=== PATIENT | female | born 1960 | race Caucasian/White ===

== ENCOUNTER 2019-04-11 05:40 | Outpatient (CLI) | payer BC ==
[~2019-04-11] VITALS: Ht 171.4 cm; Wt 82.6 kg
== END 2019-04-11 13:25 | disposition home or self-care (01) ==
LOC: PREOP 05:40
PROVIDERS: ATTEND Surgery
DX: Z01.818 Encounter for other preprocedural examination (principal)

== ENCOUNTER 2019-04-18 07:44 | Day surgery (SDC) | payer BC, OTHER ==
[~2019-04-18] VITALS: Ht 171.4 cm; Wt 82.6 kg
[~2019-04-18 07:44] MED LIST: LACTATED RINGERS 1,000 ML IV ONE
[2019-04-18] MEDS ORDERED: LACTATED RINGERS 1,000 ML IV STA (07:56)
[2019-04-18] MEDS ORDERED: proPOfol 200 MG/20 ML (DIPRIVAN) VIAL IV ONE ×2 (07:58→09:05)
[2019-04-18] MEDS ORDERED: fentaNYL INJECTION 100 MCG/2 ML AMP ONE (07:59)
[2019-04-18] MEDS ORDERED: MIDAZOLAM 2 MG/2 ML (VERSED) VIAL ONE (07:59)
[2019-04-18] MEDS ORDERED: LIDOCAINE PF 2% 5 ML (XYLOCAINE) VIAL ONE (07:59)
[2019-04-18 08:00] VITALS: BP 153/89
--- NOTE | 2019-04-18 08:19 | Progress Note-Pre Operative ---
Pre-Operative Progress Note H&P Reviewed The H&P was reviewed, patient examined and no changes noted. Time Seen by Provider: 08:14 Date H&P Reviewed: Apr 18, 2019 Time H&P Reviewed: 08:11 Pre-Operative Diagnosis: Screening colonoscopy CONOR LAINEZ DO Apr 18, 2019 08:19
--- OUTSIDE RECORDS SUMMARY | 2019-04-18 09:36 | XMS REPORT ---
Author Author Migration, Doctor Organization [facility] Address Unknown Phone Unavailable Care Team Providers Care Free Lance Model Name Role Phone Migration, Doctor Unavailable Unavailable PROBLEMS Unknown Problems ALLERGIES No Information ENCOUNTERS Encounter Location Date Diagnosis [facility] [id number] [place] [id number] Jan, [facility] [address] [address] Jul, Mid-back pain, acute M54.9 and Lower back pain M54.5 [facility] [id number] [place] [address] May, Elevated blood pressure reading R03.0 ; Actinic keratosis L57.0 and Skin tag L91.8 [facility] [id number] [place] [address] Jun, [facility] [address] [address] Jun, Encounter for wellness examination Z00.00 and Routine gynecological examination Z01.419 [facility] [id number] [place] [id number] Apr, Dental examination V72.2 [facility] [id number] [place] [address] Mar, [facility] [id number] [place] [address] Mar, Hyperlipemia 272.4 [facility] [address] [address] Mar, Chest pain of uncertain etiology 786.59 [facility] [id number] [place] [id number] February, Dental examination V72.2 [facility] [address] [facility] [id number], [place] [address] Jan, [facility] [address] [address] Jan, [facility] [address] [id number] [address] Apr, [facility] [address] [address] Apr, [facility] [address] [facility] [id number], [place] [address] Apr, [facility] [address] [id number] [address] Apr, IMMUNIZATIONS No Known Immunizations SOCIAL HISTORY Never Assessed REASON FOR VISIT EMR-[facility] PLAN OF CARE VITAL SIGNS MEDICATIONS Medication Instructions Dosage Frequency Start Date End Date Duration Status Nystatin-Triamcinolone 100,000-0.1 unit/g-% 1 wale by Topical route 2 times per day for 14 day(s) PRN rash in skin folds Apr, Active Lamisil 250 mg 1 tablet by Oral route 1 time per day Apr, Active RESULTS No Results PROCEDURES No Known procedures INSTRUCTIONS MEDICATIONS ADMINISTERED No Known Medications MEDICAL (GENERAL) HISTORY Type Description Date Medical History liver problem as a child Surgical History Appendectomy Surgical History Tonsillectomy Surgical History Right knee cap repair Hospitalization History childbirth
--- OUTSIDE RECORDS SUMMARY | 2019-04-18 09:36 | XMS REPORT ---
Author Author SUDARSHAN CONTE Organization [facility] Address [address] [place] [address] Care Team Providers Care Heavy Line Technician Name Role Phone SUDARSHAN CONTE Unavailable PROBLEMS Unknown Problems ALLERGIES Substance Reaction Event Type Date Status gluten sensitive Unknown Non Drug Allergy Jul, Active ENCOUNTERS Encounter Location Date Diagnosis [facility] [address] [address] Jul, Mid-back pain, acute M54.9 and Lower back pain M54.5 [facility] [address] [address] May, Elevated blood pressure reading R03.0 ; Actinic keratosis L57.0 and Skin tag L91.8 [facility] [id number] [place] [address] Jun, [facility] [address] [place] [address] Jun, Encounter for wellness examination Z00.00 and Routine gynecological examination Z01.419 [facility] [id number] [place] [id number] Apr, Dental examination V72.2 [facility] [id number] [place] [address] Mar, [facility] [address] [address] 08 Mar, 2015 Hyperlipemia 272.4 [facility] [id number] [place] [address] 05 Mar, 2015 Chest pain of uncertain etiology 786.59 [facility] [address] [place] [phone] February, Dental examination V72.2 [facility] [address] [facility] [id number] [address] Jan, [facility] [address] [id number] [address] Jan, [facility] [address] [facility] [id number], [place] [address] Apr, [facility] [address] [facility] [id number], [place] [address] Apr, [facility] [address] [facility] [id number], [place] [address] Apr, [facility] [address] [facility] [id number] [address] Apr, IMMUNIZATIONS No Known Immunizations SOCIAL HISTORY Never Assessed REASON FOR VISIT Back pain-upper back pain between the shoulder blades that is causing her to wak e up at night. She is concerned that it may be something with her liver.--Carlos ruelas MA PLAN OF CARE Activity Details Follow Up if not improving or regular follow up with pcp Reason: Pending Test Xray : Spine, Thoracic 2 views (IN HOUSE) Pending Test Xray : Spine, Lumbar 2-3 views (IN HOUSE) VITAL SIGNS Height 68 in 2018-08-09 Weight 173.6 lbs 2018-08-09 Temperature 97.8 degrees Fahrenheit 2018-08-09 Heart Rate 72 bpm 2018-08-09 Respiratory Rate 18 2018-08-09 BMI 26.39 kg/m2 2018-08-09 Blood pressure systolic 140 mmHg 2018-08-09 Blood pressure diastolic 74 mmHg 2018-08-09 MEDICATIONS Medication Instructions Dosage Frequency Start Date End Date Duration Status Multivitamin Adult - Active Ibuprofen 200 MG Orally every 6 hrs 2 tablet as needed 6h Active RESULTS No Results PROCEDURES Procedure Date Ordered Result Body Site X-RAY EXAM OF THORACIC SPINE Aug 09, 2018 X-RAY EXAM OF LOWER SPINE Aug 09, 2018 INSTRUCTIONS MEDICATIONS ADMINISTERED No Known Medications MEDICAL (GENERAL) HISTORY Type Description Date Medical History liver problem as a child Surgical History Appendectomy Surgical History Tonsillectomy Surgical History Right knee cap repair Hospitalization History childbirth
--- OUTSIDE RECORDS SUMMARY | 2019-04-18 09:36 | XMS REPORT ---
Author Author KING MABEL [facility] Address [address] [place] [address] Care Team Providers Care Assessment Specialist Name Role Phone MABEL KATZ Unavailable PROBLEMS Type Condition ICD9-CM Code [id number] Code Onset Dates Condition Status SNOMED Code Problem Routine gynecological examination Z01.419 Active 028767453 Problem Encounter for wellness examination Z00.00 Active 348641734 Problem Chest pain of uncertain etiology 786.59 Active 81921300 Problem Dermatophytosis of the body 110.5 Active 939477260 ALLERGIES Substance Reaction Event Type Date Status gluten sensitive Unknown Non Drug Allergy May, Active ENCOUNTERS Encounter Location Date Diagnosis [facility] [address] [address] 03 May, 2018 Elevated blood pressure reading R03.0 ; Actinic keratosis L57.0 and Skin tag L91.8 [facility] [address] [address] 13 Jun, 2016 [facility] [address] [address] 06 Jun, 2016 Encounter for wellness examination Z00.00 and Routine gynecological examination Z01.419 [facility] [address] [id number] Apr, Dental examination V72.2 [facility] [address] [address] Mar, [facility] [address] [address] Mar, Hyperlipemia 272.4 [facility] [address] [address] 05 Mar, 2015 Chest pain of uncertain etiology 786.59 [facility] [address] [id number] [id number] February, Dental examination V72.2 [facility] [address] [id number] [address] Jan, [facility] [address] [id number] [address] Jan, [facility] [address] [id number] [address] Apr, [facility] [address] [facility] [id number] [address] Apr, [facility] [address] [id number] [address] Apr, [facility] [address] [id number] [address] Apr, IMMUNIZATIONS No Known Immunizations SOCIAL HISTORY Never Assessed REASON FOR VISIT Transition of Care-Yaerli, has a few skin lesions on back that would like ev aluated. PLAN OF CARE Activity Details Follow Up 3 months or as indicated by lab Reason: VITAL SIGNS Height 68 in 2018-05-14 Weight 176.3 lbs 2018-05-14 Temperature 98.2 degrees Fahrenheit 2018-05-14 Heart Rate 64 bpm 2018-05-14 Respiratory Rate 20 2018-05-14 BMI 26.80 kg/m2 2018-05-14 Blood pressure systolic 164 mmHg 2018-05-14 Blood pressure diastolic 102 mmHg 2018-05-14 MEDICATIONS Medication Instructions Dosage Frequency Start Date End Date Duration Status Ibuprofen 200 MG Orally every 6 hrs 2 tablet as needed 6h Active Multivitamin Adult - Active RESULTS No Results PROCEDURES Procedure Date Ordered Result Body Site COMPLETE CBC W/AUTO DIFF WBC May 14, 2018 COMPREHEN METABOLIC PANEL May 14, 2018 LIPID PANEL May 14, 2018 INSTRUCTIONS MEDICATIONS ADMINISTERED No Known Medications MEDICAL (GENERAL) HISTORY Type Description Date Surgical History Appendectomy Surgical History Tonsillectomy Surgical History Right knee cap repair Hospitalization History childbirth
--- OUTSIDE RECORDS SUMMARY | 2019-04-18 09:36 | XMS REPORT ---
Author Author Migration, Doctor Organization [facility] Address Unknown Phone Unavailable Care Team Providers Care Sap Solution Manager Consultant Name Role Phone Migration, Doctor Unavailable Unavailable PROBLEMS No Known Problems ALLERGIES No Information ENCOUNTERS Encounter Location Date Diagnosis [facility] [id number] [place] [address] Mar, [facility] [id number] [place] [id number] Jan, Periodontitis K05.30 [facility] [address] [id number] Jan, Caries K02.9 ; Dental examination Z01.20 and Periodontitis K05.30 [facility] [id number] [place] [address] Jan, Suprapubic pain R10.2 [facility] [id number] [place] [address] Jul, Mid-back pain, acute M54.9 and Lower back pain M54.5 [facility] [id number] [place] [address] May, Elevated blood pressure reading R03.0 ; Actinic keratosis L57.0 and Skin tag L91.8 [facility] [id number] [place] [address] Jun, [facility] [address] [address] 06 Jun, 2016 Encounter for wellness examination Z00.00 and Routine gynecological examination Z01.419 [facility] [place] [id number] [place] [id number] Apr, Dental examination V72.2 [facility] [address] [place] [address] Mar, [facility] [address] [place] [address] Mar, Hyperlipemia 272.4 [facility] [id number] [place] [address] Mar, Chest pain of uncertain etiology 786.59 [facility] [id number] [place] [id number] February, Dental examination V72.2 [facility] [id number] [place] [address] Jan, [facility] [id number] [place] [address] Jan, [facility] [id number] [place] [address] Apr, [facility] [id number] [place] [address] Apr, [facility] [address] [place] [address] Apr, [facility] [id number] [place] [address] Apr, IMMUNIZATIONS No Known Immunizations SOCIAL HISTORY Never Assessed REASON FOR VISIT EMR-[facility] PLAN OF CARE VITAL SIGNS MEDICATIONS Unknown Medications RESULTS No Results PROCEDURES No Known procedures INSTRUCTIONS MEDICATIONS ADMINISTERED No Known Medications MEDICAL (GENERAL) HISTORY Type Description Date Medical History liver problem as a child Surgical History Appendectomy Surgical History Tonsillectomy Surgical History Right knee cap repair Hospitalization History childbirth
--- NOTE | 2019-04-18 09:37 | Endoscopy Discharge Instruct ---
Endo Procedure/Findings Findings 1.: Polyp 2.: Internal Hemorrhoids Discharge Instructions - Activity: You might feel a little sleepy until tomorrow. This is due to the medicine you received to relax you. Until tomorrow, you should: NOT drive a car, operate machinery or power tools. NOT drink any alcoholic beverages. NOT make any important decisions or sign importortant papers. Do not return to work until tomorrow, unless otherwise instructed. Resume previous activities tomorrow. Diet: Start by taking liquids. If you tolerate liquids, advance to solid food. make an appointment for one week Instructions: 1.: Colonscopy in 3 years Notify Physician - If you experience excessive bleeding, unusual abdominal pain, fever, or chest pain, contact your doctor immediately. Follow-Up: - I have received and understand the above instructions and will call my doctor if I have any further questions. Patient Signature Date Nurse Signature Other (Relationship) CONOR LAINEZ DO Apr 18, 2019 09:37
--- NOTE | 2019-04-18 09:37 | Progress Note-Post Operative ---
Post-Operative Progess Note Surgeon (s)/Ell Tutor (s) Surgeon CONOR LAINEZ DO Ell Tutor: none Pre-Operative Diagnosis Screening colonoscopy Post-Operative Diagnosis Rectal polyp Internal Hemorrhoids External skin tag Procedure & Operative Findings Date of Procedure 04/18/19 Procedure Performed/Findings Colon with snare Anesthesia Type IV sedation by AVIONICS INSTALLER Estimated Blood Loss Estimated blood loss (mL): scant Specimens/Packing Specimens Removed rectal polyp CONOR LAINEZ DO Apr 18, 2019 09:37
--- OUTSIDE RECORDS SUMMARY | 2019-04-18 09:37 | XMS REPORT | Continuity of Care Document ---
Author Organization Unknown Address Unknown Allergies There is no data. Medications There is no data. Problems Date Dx Coded Attending Type Code Diagnosis Diagnosed By 05/24/2008 SUDARSHAN CONTE APRN V72.31 ROUTINE GYNECOLOGICAL EXAMINATION 05/24/2008 LILIAN HURTADO DDS V72.31 ROUTINE GYNECOLOGICAL EXAMINATION 01/31/2009 SUDARSHAN CONTE APRN 465.9 ACUTE UPPER RESPIRATORY INFECTIONS OF UNSPECIFIED SITE 01/31/2009 LILIAN HURTADO DDS 465.9 ACUTE UPPER RESPIRATORY INFECTIONS OF UNSPECIFIED SITE 03/15/2009 SUDARSHAN CONTE APRN 729.5 PAIN IN THE LEG (BELOW THE KNEE) 03/15/2009 LILIAN HURTADO DDS 729.5 PAIN IN THE LEG (BELOW THE KNEE) 04/19/2014 SUDARSHAN CONTE APRN 110.5 DERMATOPHYTOSIS OF THE BODY 04/19/2014 LILIAN HURTADO DDS 110.5 DERMATOPHYTOSIS OF THE BODY Procedures There is no data. Results Test Result Range CBC - 05/14/18 13:16 WHITE BLOOD CELL COUNT 4.8 Thousand/uL 3.8-10.8 RED BLOOD CELL COUNT 4.46 Million/uL 3.80-5.10 HEMOGLOBIN 13.1 g/dL 11.7-15.5 HEMATOCRIT 39.3 % 35.0-45.0 MCV 88.1 fL 80.0-100.0 MCH 29.4 pg 27.0-33.0 MCHC 33.3 g/dL 32.0-36.0 RDW 12.8 % 11.0-15.0 PLATELET COUNT 242 Thousand/uL 140-400 MPV 10.3 fL 7.5-12.5 ABSOLUTE NEUTROPHILS 2491 cells/uL 1775-4162 ABSOLUTE LYMPHOCYTES 1786 cells/uL 850-3900 ABSOLUTE MONOCYTES 370 cells/uL 200-950 ABSOLUTE EOSINOPHILS 91 cells/uL 15-500 ABSOLUTE BASOPHILS 62 cells/uL 0-200 NEUTROPHILS 51.9 % NRG LYMPHOCYTES 37.2 % NRG MONOCYTES 7.7 % NRG EOSINOPHILS 1.9 % NRG BASOPHILS 1.3 % NRG Encounters ACCT No. Visit Date/Time Discharge Status Pt. Type Provider Facility Loc./Unit Complaint [id number] 03/15/2019 16:20:00 03/15/2019 23:59:59 CLS Outpatient MABEL KATZ [facility] [id number] 05/14/2018 12:20:00 Document Registration [id number] 11/29/2014 00:00:00 11/29/2014 23:59:59 CLS Outpatient LILIAN HURTADO DDS [id number] 04/19/2014 13:31:00 04/19/2014 23:59:59 CLS Outpatient SUDARSHAN CONTE APRN
--- OUTSIDE RECORDS SUMMARY | 2019-04-18 09:37 | XMS REPORT ---
Author Author TEE GOMES [facility] Address [address] [place] [address] Care Team Providers Care Retail Management Keyholder Name Role Phone TEE GOMES Unavailable PROBLEMS Type Condition ICD9-CM Code [id number] Code Onset Dates Condition Status SNOMED Code Problem Encounter for wellness examination Z00.00 Active 345502999 Problem Routine gynecological examination Z01.419 Active 701710186 Problem Chest pain of uncertain etiology 786.59 Active 05196964 Problem Dermatophytosis of the body 110.5 Active 029500398 ALLERGIES Unknown Allergies SOCIAL HISTORY No smoking Hx information available PLAN OF CARE VITAL SIGNS MEDICATIONS Unknown Medications RESULTS No Results PROCEDURES No Known procedures IMMUNIZATIONS No Known Immunizations
--- OUTSIDE RECORDS SUMMARY | 2019-04-18 09:37 | XMS REPORT ---
Author Author TEE GOMES Organization [facility] Address [address] [place] [address] Care Team Providers Care Axle Polisher Name Role Phone CHERRIE GOMESE Unavailable PROBLEMS Type Condition ICD9-CM Code ZRM99-HR Code Onset Dates Condition Status SNOMED Code Problem Encounter for wellness examination Z00.00 Active 576980067 Problem Routine gynecological examination Z01.419 Active 709651897 Assessment Encounter for wellness examination Z00.00 06 Jun, 2016 Active 454575770 Problem Chest pain of uncertain etiology 786.59 Active 05509085 Problem Dermatophytosis of the body 110.5 Active 320211387 ALLERGIES Substance Reaction Event Type Date Status gluten sensitive Unknown Non Drug Allergy Jun, Active SOCIAL HISTORY No smoking Hx information available PLAN OF CARE VITAL SIGNS Height 68 in 2016-06-17 Weight 181.3 lbs 2016-06-17 Heart Rate 76 bpm 2016-06-17 Respiratory Rate 18 2016-06-17 BMI 27.56 kg/m2 2016-06-17 Blood pressure systolic 150 mmHg 2016-06-17 Blood pressure diastolic 92 mmHg 2016-06-17 MEDICATIONS Unknown Medications RESULTS Name Result Date Reference Range PAP TEST, HPV IF ASCUS 2016-06-17 DIAGNOSIS: Specimen adequacy: Clinician provided ICD10: Performed by: . . Note: . CBC 2016-06-17 WBC 4.7 3.4-10.8 RBC 4.45 3.77-5.28 Hemoglobin 12.7 11.1-15.9 Hematocrit 39.8 34.0-46.6 MCV 89 79-97 MCH 28.5 26.6-33.0 MCHC 31.9 31.5-35.7 RDW 13.8 12.3-15.4 Platelets 254 150-379 Neutrophils 45 Lymphs 44 Monocytes 8 Eos 2 Basos 1 Neutrophils (Absolute) 2.1 1.4-7.0 Lymphs (Absolute) 2.1 0.7-3.1 Monocytes(Absolute) 0.4 0.1-0.9 Eos (Absolute) 0.1 0.0-0.4 Baso (Absolute) 0.0 0.0-0.2 Immature Granulocytes 0 Immature Grans (Abs) 0.0 0.0-0.1 CULTURE, GENITAL 2016-06-17 Genital Culture, Routine Final report Result 1 Result 2 LIPID PANEL 2016-06-17 Cholesterol, Total 221 100-199 Triglycerides 73 0-149 HDL Cholesterol 84 >39 VLDL Cholesterol Pete 15 5-40 LDL Cholesterol Calc 122 0-99 Comment: CMP 2016-06-17 Glucose, Serum 90 65-99 BUN 14 6-24 Creatinine, Serum 0.89 0.57-1.00 eGFR If NonAfricn Am 74 >59 eGFR If Africn Am 86 >59 BUN/Creatinine Ratio 16 9-23 Sodium, Serum 144 134-144 Potassium, Serum 4.2 3.5-5.2 Chloride, Serum 102 97-108 Carbon Dioxide, Total 25 18-29 Calcium, Serum 9.4 8.7-10.2 Protein, Total, Serum 6.5 6.0-8.5 Albumin, Serum 4.3 3.5-5.5 Globulin, Total 2.2 1.5-4.5 A/G Ratio 2.0 1.1-2.5 Bilirubin, Total 0.5 0.0-1.2 Alkaline Phosphatase, S 47 39-117 AST (SGOT) 17 0-40 ALT (SGPT) 14 0-32 PDF Report 2016-06-17 PDF Report1 LCLS PROCEDURES Procedure Date Ordered Related Diagnosis Body Site COMPLETE CBC W/AUTO DIFF WBC Jun 17, 2016 LIPID PANEL Jun 17, 2016 Preventive Care Est Pt. Age 40-64 Jun 17, 2016 CULTURE, BACTERIA, OTHER Jun 17, 2016 COMPREHEN METABOLIC PANEL Jun 17, 2016 VENIPUNCT, ROUTINE* Jun 17, 2016 SPECIMEN HANDLING Jun 17, 2016 IMMUNIZATIONS No Known Immunizations
--- OUTSIDE RECORDS SUMMARY | 2019-04-18 09:37 | XMS REPORT ---
Author Author LILIAN HURTADO [facility] eClinicalWorks Address Unknown Phone Unavailable Care Team Providers Care Bottom Painter Name Role Phone LILIAN HURTADO CP Unavailable Allergies No Known Allergies Problems Problem Type Condition ICD-9 Code Onset Dates Condition Status Assessment Dental examination V72.2 Active Problem Dermatophytosis of the body 110.5 Active Medications No Known Medications Procedures Procedure Coding System Code Date Billing Notes on claim CPT-4 EC109 March 07, 2015 Results No Known Results Summary Purpose eClinicalWorks Submission
[2019-04-18 09:50] VITALS: BP 123/70
[2019-04-18 10:15] VITALS: BP 129/88
--- NOTE | 2019-04-18 10:33 | Anesthesia-General Post-Op ---
MAC Patient Condition Mental Status/LOC: Same as Preop Cardiovascular: Satisfactory Nausea/Vomiting: Absent Respiratory: Satisfactory Pain: Controlled Complications: Absent Post Op Complications Complications None Follow Up Care/Instructions Patient Instructions None needed. Anesthesiology Discharge Order Discharge Order Patient is doing well, no complaints, stable vital signs, no apparent adverse anesthesia problems. No complications reported per nursing. ORTIZ ARCE CRNA Apr 18, 2019 10:33
[2019-04-18 10:56] VITALS: BP 129/88
--- NOTE | 2019-04-18 14:00 | OPERATIVE REPORT ---
DATE OF SERVICE: 04/18/2019 PREOPERATIVE DIAGNOSIS: Screening colonoscopy. POSTOPERATIVE DIAGNOSES: 1. Rectal polyp. 2. Internal hemorrhoids. 3. External hemorrhoidal skin tag. PROCEDURE: Colonoscopy with snare polypectomy. SURGEON: Davion Lopez DO HEALTHCARE MANAGER: None. ANESTHESIA: IV sedation by RESEARCH ELECTRICIAN. SPECIMEN: Rectal polyp. BLOOD LOSS: Scant. FLUIDS: Per anesthesia. POSTOPERATIVE CONDITION: Stable. INDICATION FOR PROCEDURE: The patient is a 58-year-old female who needed a screening colonoscopy. FINDINGS: The patient had a rectal polyp possibly bigger than a cm and she had some internal hemorrhoids as well as couple external hemorrhoidal skin tags. PROCEDURE NOTE: After informed consent was obtained, the patient was brought to the endoscopy suite, placed in the bed in left lateral decubitus position. She was administered IV sedation by the RESEARCH ELECTRICIAN who then monitored her vitals the entire time, heart rate, blood pressure and pulse ox. The scope was then inserted, pushed all the way to about 150 cm, able to get to the cecum. Took a picture of appendiceal orifice, noted the ileocecal valve and then slowly withdrew the scope insufflating to look circumferentially at the farrell in the cecum up the ascending colon to the hepatic flexure, then down the transverse colon, the splenic flexure, into the descending colon and then down in the sigmoid and finally into the rectum, retroflexed in the rectal vault, saw a pretty large polyp, took a picture of this and then a snare polypectomy able to remove it completely and had suctioned this up to the scope and then pulled this out to pull the polyp out. The colon was pretty twisty, it took a little while to get to the side, but able to do this without too much difficulty. Once the scope was removed, the polyp was sent to pathology. The patient was recovered in endoscopy suite. Job ID: [id number] DocumentID: [id number] Dictated Date: 04/18/2019 09:42:26 Luncheonette Operator Date: 04/18/2019 13:59:42 Dictated By: DAVION LOPEZ DO
== END 2019-04-18 10:20 | disposition home or self-care (01) ==
LOC: ENDO 07:44
PROVIDERS: ATTEND Surgery
DX: Z12.11 Encounter for screening for malignant neoplasm of colon (principal); K62.1 Rectal polyp; K64.8 Other hemorrhoids; K64.4 Residual hemorrhoidal skin tags

== ENCOUNTER → 2019-05-06 | Outpatient (CLI) | payer BC ==
[~2019-05-06] MED LIST changes: +HOLD METFORMIN - RECEIVED CONTRAST 20 ML VIAL IV SCH; +IOHEXOL 350 MG/ML 100 ML (OMNIPAQUE 350) VIAL IV ONE; -LACTATED RINGERS 1,000 ML IV ONE; +NS 100 ML (IVPB) BAG IV ONE
[2019-05-06 12:38] LABS: BUN/CREATININE RATIO 15; CREATININE SERUM 0.92 MG/DL (0.60-1.30); GFR ESTIMATED > 60
--- NOTE | 2019-05-06 15:11 | Diagnostic Imaging Report ---
PROCEDURE: CT abdomen and pelvis with contrast. TECHNIQUE: Multiple contiguous axial images were obtained through the abdomen and pelvis after administration of intravenous contrast. Auto Exposure Controls were utilized during the CT exam to meet ALARA standards for radiation dose reduction. INDICATION: Chronic rectal pain. Lower abdominal pain starting 2 months ago. CORRELATION STUDY: None. FINDINGS: LOWER THORAX: Suggestion of two small nodules left lung base. One anteriorly inseparable from the diaphragm measuring 8 mm, additional one posterior lateral left lower lobe, 6 mm. LIVER: Unremarkable. GALLBLADDER: Present and unremarkable. No bile duct dilatation. SPLEEN: Unremarkable. PANCREAS: Unremarkable. ADRENAL GLANDS: Unremarkable. KIDNEYS: Normal configuration. No calcification or obstruction. ABDOMINAL AORTA: Unremarkable, nonaneurysmal. GASTROINTESTINAL TRACT: Stomach relatively collapsed appearing unremarkable. Small bowel unremarkable. No transition or findings to suggest obstruction. There is mild severity fecal retention throughout the colon with few distal colonic diverticuli present. Tortuous course of the distal colon. Appendix not visualized likely absent. No abdominal ascites or free air. At the level of the rectum, no definitive abnormal inflammatory changes with presacral soft tissues unremarkable. There is noted slight asymmetric changing caliber of the distal sigmoid colon demonstrated at both imaging sequences. URINARY BLADDER: Unremarkable. REPRODUCTIVE: Uterus and adnexa are unremarkable. OSSEOUS STRUCTURES: Mildly advanced degenerative changes. OTHER: None. IMPRESSION: 1. Negative for acute abnormality of the abdomen or pelvis. 2. Few distal colonic diverticuli without evidence for acute diverticulitis. There is very questionable persistent asymmetric annular narrowing at the distal sigmoid colon. May very well be attributed to phase of peristalsis and/or spasm. Given symptoms, annular lesion not excluded. If not recently performed, colon cancer screening assessment would be recommended. Dictated by: Dictated on workstation # [id number]
== END ==
LOC: RAD 12:01
PROVIDERS: ATTEND Surgery
DX: R10.30 Lower abdominal pain, unspecified (principal); K62.89 Other specified diseases of anus and rectum; K57.30 Diverticulosis of large intestine without perforation or abscess without bleeding
CPT/HCPCS: 36415; 74177; 82565; 84520

== ENCOUNTER 2019-11-30 18:08 | Emergency (ER) | payer BC, OTHER ==
[~2019-11-30] VITALS: Ht 170.1 cm; Wt 82.2 kg
--- NOTE | 2019-11-30 18:37 | ED Fall/Injury ---
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 She does have an abrasion to her right flank. She has pain on the lower ribs on the right side and has pain with deep breathing. She denies hitting her head or any loss of consciousness. This happened about 30-45 minutes prior to arrival in the ED. She has not taken anything for pain. She denies any abdominal pain. She has had no nausea or vomiting. She does not take any blood thinners. She has increased pain with movement Allergies and Home Medications Allergies Coded Allergies: No Known Drug Allergies (Verified , 04/18/19) Home Medications No Active Prescriptions or Reported Meds Patient Home Medication List Home Medication List Reviewed: Yes Review of Systems Review of Systems Constitutional: No chills, No fever Eyes: No Symptoms Reported Ears, Nose, Mouth, Throat: no symptoms reported Respiratory: other (pain to the right side of her chest and flank with deep breaths and movement) Cardiovascular: chest pain (right lower chest pain with deep breaths and movement) Gastrointestinal: other (right lower flank pain where she has the abrasion and contusion) Genitourinary: no symptoms reported Musculoskeletal: see HPI Skin: see HPI Psychiatric/Neurological: Denies Headache, Denies Numbness, Denies Paresthesia Past Odgdsdk-Lyftsa-Wchvbj Hx Past Med/Social Hx: Reviewed Nursing Past Med/Soc Hx Patient Social History Alcohol Use: Denies Use Recreational Drug Use: No Smoking Status: Never a Smoker 2nd Hand Smoke Exposure: No Recent Foreign Travel: No Contact w/Someone Who Travel: No Recent Hopitalizations: No Physical Abuse: No Sexual Abuse: No Mistreated: No Fear: No Immunizations Up To Date Tetanus Booster (TDap): Unknown Seasonal Allergies Seasonal Allergies: Yes (MILD) Past Medical History Surgeries: Yes (KNEE SURGERY) Adenoidectomy, Appendectomy, Orthopedic, Tonsillectomy Respiratory: No Cardiac: No Neurological: No Sexually Transmitted Disease: No HIV/AIDS: No Genitourinary: No Gastrointestinal: No Musculoskeletal: Yes (MILD) Arthritis Endocrine: No HEENT: Yes (GLASSES) Loss of Vision: Denies Hearing Impairment: Denies Cancer: No Psychosocial: No Integumentary: No Blood Disorders: No Adverse Reaction/Blood Tranf: No (N/A) Physical Exam Vital Signs Vital Signs - First Documented Capillary Refill : Height, Weight, BMI Height: 5'7.50" Weight: 182lbs. 0.0oz. [id number]; 28.1 BMI Method: General Appearance: WD/WN, mild distress HEENT: PERRL/EOMI, normal ENT inspection, pharynx normal Neck: non-tender, supple, normal inspection Cardiovascular: normal peripheral pulses, regular rate, rhythm Respiratory: lungs clear, normal breath sounds, no respiratory distress, no accessory muscle use, other (tender to palpation in the right lower lateral ribs towards her flank where she has the abrasion and contusion) Gastrointestinal: normal bowel sounds, non tender, soft, no pulsatile mass Back: no CVA tenderness, no vertebral tenderness, other (pain in her right flank where she has an abrasion and contusion over the lower lateral ribs) Extremities: normal range of motion, non-tender, normal capillary refill Neurologic/Psychiatric: core man II-XII nml as tested, alert, normal mood/affect, oriented x 3 Skin: warm/dry, other (abrasion and erythema to right lateral lower ribs and flank) Brenna Coma Score Best Eye Response: (4) Open Spontaneously Best Verbal Response: (5) Oriented Best Motor Response: (6) Obeys Commands Gantt Total: 15 Progress/Results/Core Measures Results/Orders My Orders Orders - CELESTINO GARCIA MD Ice: Apply To Affected Area (11/30/19 18:28) Ibuprofen Tablet (Motrin Tablet) (11/30/19 18:48) Ribs/Unilateral With Chest (11/30/19 18:49) Vital Signs/I&O 11/30/19 11/30/19 11/30/19 18:13 18:13 19:13 Temp 36.8 36.8 36.8 Pulse 75 75 Resp 16 16 B/P (MAP) 158/91 (113) 158/91 (113) Pulse Ox 97 97 O2 Delivery Room Air Room Air Progress Progress Note #1: Progress Note Ordered ice pack and ibuprofen for the pain. X-rays of the ribs and chest to evaluate area of abrasion. She has no abdominal tenderness or tenderness over the liver so will defer imaging of her abdomen or internal organs. Discussed updated tetanus booster and pt declines. Progress Note #2: Time: 19:24 Progress Note No definite rib fractures seen. No pneumothorax. Will treat for rib contusion and abrasion. Counseled on follow-up and return precautions. Advised if she starts having abdominal pain to return or be seen immediately for possible abdominal imaging to evaluate for internal bleeding. Diagnostic Imaging Diagonstic Imaging: Xray Plain Films/CT/US/NM/MRI: chest (and ribs) Comments NAME: TOPHER WANG [facility] REC#: [id number] PT STATUS: REG ER : 1960 PHYSICIAN: CELESTINO GARCIA MD ADMIT DATE: 11/30/19/ER FS Draft Date of Exam:11/30/19 RIBS/UNILATERAL WITH CHEST HISTORY: Fall with pain in the right lower chest. COMPARISON: None. TECHNIQUE: Frontal view of the chest. Frontal and oblique views of the right ribs FINDINGS: Lung volumes are normal. No focal consolidation is seen. There is no pleural effusion or pneumothorax. The cardiac silhouette is normal in size and contour. No displaced rib fractures are seen. IMPRESSION: 1. No displaced right rib fracture is seen. No acute pulmonary abnormality is seen. Dictated on workstation # [id number] Dict: 11/30/191909 Trans: 11/30/191913 [id number] Interpreted by: JENNY CUTLER MD Electronically signed by: Departure Impression Primary Impression: Contusion of rib on right side Qualified Codes: S20.211A - Contusion of right front wall of thorax, initial encounter Additional Impressions: Abrasion of flank Qualified Codes: S30.811A - Abrasion of abdominal wall, initial encounter Contusion of right side of back Qualified Codes: S20.221A - Contusion of right back wall of thorax, initial encounter Disposition: 01 HOME, SELF-CARE Condition: Stable Departure-Patient Inst. Decision time for Depature: 19:27 Referrals: [facility] (PCP) Primary Care Physician MABEL KATZ APRN (Family) Primary Care Physician Patient Instructions: Bruised Rib (DC), Contusion (DC), Skin Abrasions (DC) Add. Discharge Instructions: Keep abrasion clean with soap and water. May apply antibiotic ointment 2-3 times a day as needed to help keep the area from getting infected Apply ice 20-30 minutes every few hours as needed for pain and swelling. Ibuprofen 800 mg every 8 hours as needed for pain and swelling. Take with food as it can be irritating to your stomach. Return or seek medical care if your pain is worsening or you have abdominal pain All discharge instructions reviewed with patient and/or family. Voiced understanding. Scripts Ibuprofen (Ibuprofen) 800 Mg Tablet 800 MG PO Q8H PRN for PAIN for 10 Days, #30 TAB 0 Refills Prov: CELESTINO GARCIA MD 11/30/19 CELESTINO GARCIA MD Nov 30, 2019 18:37
[2019-11-30] MEDS ORDERED: IBUPROFEN 800 MG (MOTRIN) TAB PO STA (18:48)
--- NOTE | 2019-11-30 19:14 | Diagnostic Imaging Report ---
HISTORY: Fall with pain in the right lower chest. COMPARISON: None. TECHNIQUE: Frontal view of the chest. Frontal and oblique views of the right ribs FINDINGS: Lung volumes are normal. No focal consolidation is seen. There is no pleural effusion or pneumothorax. The cardiac silhouette is normal in size and contour. No displaced rib fractures are seen. IMPRESSION: 1. No displaced right rib fracture is seen. No acute pulmonary abnormality is seen. Dictated by: Dictated on workstation # [id number]
[2019-11-30] MEDS ORDERED: IBUP-1780 PO (19:29)
[2019-11-30 19:37] VITALS: BP 149/81
== END 2019-11-30 19:37 | disposition home or self-care (01) ==
LOC: EDUNIT# 18:08 → ER FS 18:10
DX: S20.211A Contusion of right front wall of thorax, initial encounter (principal); S20.221A Contusion of right back wall of thorax, initial encounter; S30.811A Abrasion of abdominal wall, initial encounter; R40.2142 Coma scale, eyes open, spontaneous, at arrival to emergency department; R40.2252 Coma scale, best verbal response, oriented, at arrival to emergency department; R40.2362 Coma scale, best motor response, obeys commands, at arrival to emergency department; W01.198A Fall on same level from slipping, tripping and stumbling with subsequent striking against other object, initial encounter
CPT/HCPCS: 71101

== ENCOUNTER → 2020-08-28 | Outpatient (CLI) | payer OTHER ==
[~2020-08-28] MED LIST changes: -HOLD METFORMIN - RECEIVED CONTRAST 20 ML VIAL IV SCH; +IBUP-1780 PO; -IOHEXOL 350 MG/ML 100 ML (OMNIPAQUE 350) VIAL IV ONE; -NS 100 ML (IVPB) BAG IV ONE
--- NOTE | 2020-08-28 10:28 | Diagnostic Imaging Report ---
EXAMINATION: PA and lateral chest at 9:32 AM. INDICATION: Back pain. FINDINGS: The heart size is within normal limits and stable when compared to 11/30/2019. The lungs are clear. There is no sign of failure, pneumonia, or pleural effusion. The mediastinum is not widened. The osseous structures are intact. In particular, there is no evidence for a fracture of the thoracic spine. IMPRESSION: 1. There is no evidence for active disease. 2. If clinical concern regarding an injury to the thoracic spine persists and further imaging is desired, then MRI would be recommended. Dictated by: Dictated on workstation # [id number]
== END ==
LOC: RAD FS 09:18
PROVIDERS: ATTEND Nurse Practitioner Family
DX: M54.6 Pain in thoracic spine (principal)
CPT/HCPCS: 71046

== ENCOUNTER 2021-09-14 18:33 | Emergency (ER) | payer OTHER ==
[~2021-09-14] VITALS: Ht 170.1 cm; Wt 73.0 kg
[2021-09-14 18:43] VITALS: BP 173/92
[2021-09-14] MEDS ORDERED: LIDOCAINE/EPI 2% 1:100,00 (XYLOCAINE) 20 ML VIAL INJ ONE (19:00)
--- NOTE | 2021-09-14 19:26 | ED Lower Extremity ---
General Chief Complaint: Laceration Stated Complaint: LT LEG INJ Nursing Triage Note: Patient states that she hit her left leg on a pet cage. Patient has a large laceration on the anterior left stauffer. Patient does state that the cage is corry. Patient also states that her last tetanus was more than 5 years ago but she does not want a tetanus shot. 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 Source: patient Exam Limitations: no limitations History of Present Illness Date Seen by Provider: Sep 14, 2021 Time Seen by Provider: 18:37 Initial Comments 61-year-old female with no significant past medical history coming in after she cut her left leg on a pet cage just prior to arrival having mild constant throbbing pain in the left leg. Last tetanus shot more than 5 years ago but she did get her vaccines going up. 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 Allergies and Home Medications Allergies Coded Allergies: No Known Drug Allergies (Verified , 04/18/19) Patient Home Medication List Home Medication List Reviewed: Yes Ibuprofen (Ibuprofen) 800 Mg Tablet, 800 MG PO Q8H PRN for PAIN Prescribed by: CELESTINO GARCIA on 11/30/191928 Review of Systems Constitutional: no symptoms reported EENTM: no symptoms reported Respiratory: no symptoms reported Cardiovascular: no symptoms reported Gastrointestinal: no symptoms reported Genitourinary: no symptoms reported Musculoskeletal: no symptoms reported Skin: other (Laceration) Psychiatric/Neurological: No Symptoms Reported All Other Systems Reviewed Negative Unless Noted: Yes Past Xflyhnq-Rckrak-Ihuvtk Hx Patient Social History Tobacco Use?: No Substance use?: No Alcohol Use?: No Pt feels they are or have been: No Immunizations Up To Date Tetanus Booster (TDap): Unknown Seasonal Allergies Seasonal Allergies: Yes (MILD) Past Medical History Surgeries: Yes (KNEE SURGERY) Adenoidectomy, Appendectomy, Orthopedic, Tonsillectomy Respiratory: No Cardiac: No Neurological: No Sexually Transmitted Disease: No HIV/AIDS: No Genitourinary: No Gastrointestinal: No Musculoskeletal: Yes (MILD) Arthritis Endocrine: No HEENT: Yes (GLASSES) Loss of Vision: Denies Hearing Impairment: Denies Cancer: No Psychosocial: No Integumentary: No Blood Disorders: No Adverse Reaction/Blood Tranf: No (N/A) Physical Exam Vital Signs Vital Signs - First Documented 09/14/21 18:43 Temp 37.0 Pulse 77 Resp 16 B/P (MAP) 173/92 (119) Pulse Ox 99 O2 Delivery Room Air Capillary Refill : Less Than 3 Seconds Height, Weight, BMI Height: 5'7.50" Weight: 182lbs. 0.0oz. [id number]; 25.00 BMI Method: General Appearance: WD/WN, no apparent distress HEENT: PERRL/EOMI, normal ENT inspection, pharynx normal Neck: non-tender, full range of motion, supple, normal inspection Cardiovascular: regular rate, rhythm, no edema, no murmur Respiratory: chest non-tender, lungs clear, normal breath sounds, no respiratory distress, no accessory muscle use Gastrointestinal: normal bowel sounds, non tender, soft; No distended, No guarding Hips: bilateral hip non-tender, bilateral hip normal inspection, bilateral hip normal range of motion, bilateral hip no evidence of injury Legs: bilateral leg other (7 cm laceration to the left stauffer that is linear and goes to the muscle without any muscular involvement) Neurologic/Tendon: normal sensation, normal motor functions, normal tendon functions, other (Normal distal pulses) Neurologic/Psychiatric: no motor/sensory deficits, alert, normal mood/affect Skin: warm/dry Lymphatic: no adenopathy Procedures/Interventions Wound Location: Lower Extremities (Left anterior stauffer) Wound Length (cm): 7 Wound's Depth, Shape: sub Q Wound Explored: clean Irrigated w/ Saline (ccs): 1000 Betadine Prep?: Yes Anesthesia: Lidocaine w/ Epi Volume Anesthetic (ccs): 3 Suture: Ethlion Suture Size: 5-0 Number of Sutures: 10 Sterile Dressing Applied?: Yes Progress Tolerated the procedure well without any complications, hemostatic afterwards Progress/Results/Core Measures Results/Orders My Orders Orders - LEILANI MELGAR MD Lidocaine/Epi 2% 1:100,000 (Xylocaine/Ep (09/14/21 19:00) Medications Given in ED Current Medications Medications Dose Ordered Sig/Luz Route Start Time Stop Time Status Last Admin Dose Admin Lidocaine/ Epinephrine 20 ml ONCE ONCE INJ 09/14/21 19:00 09/14/21 19:01 DC 09/14/21 19:14 20 ML Vital Signs/I&O 09/14/21 18:43 Temp 37.0 Pulse 77 Resp 16 B/P (MAP) 173/92 (119) Pulse Ox 99 O2 Delivery Room Air Blood Pressure Mean: 119 Progress Progress Note : Progress Note Presented for laceration which was cleaned and closed. Wound is superficial just through the subcutaneous tissue and does not involve any muscle. Normal tendon exam without any evidence of injury, normal distal pulses without any evidence of injury. Patient unwilling to update her tetanus and she understands the risk of this. She was then discharged home in stable condition with strict return precautions Departure Impression Primary Impression: Laceration Disposition: 01 HOME, SELF-CARE Condition: Stable Departure-Patient Inst. Decision time for Depature: 19:25 Referrals: WILLARD MILLER APRN (PCP) Primary Care Physician [facility] (Family) Primary Care Physician Patient Instructions: Laceration Repair With Stitches ED Add. Discharge Instructions: The stitches need to come out in 7 to 10 days. You can go to your regular doctor or come to the emergency department. If you have any signs of infection please call your doctor or come back here. Please not get the stitches wet at least for the next 5 days and then water can briefly run over them, but do not submerge them in water. LEILANI MELGAR MD Sep 14, 2021 19:25
== END 2021-09-14 19:27 | disposition home or self-care (01) ==
LOC: EDUNIT# 18:33 → ER FS 18:34
DX: S81.812A Laceration without foreign body, left lower leg, initial encounter (principal); W45.8XXA Other foreign body or object entering through skin, initial encounter
CPT/HCPCS: 12002